=== PATIENT | female | born 1960 | race Caucasian/White ===

== ENCOUNTER 2017-08-30 16:40 | Inpatient (IN) | payer MEDICARE ==
[2017-08-30 18:44] LABS: #Eosinphils 0.3 thou/uL (0.0-0.7); #Lymphocytes 0.8 thou/uL (1.20-3.40); #Monocytes 0.7 thou/uL (0.11-0.59); #Neutrophils 7.2 thou/uL (1.40-6.50); %Basophils 0.2 % (0.0-1.0); %Lymphocytes 8.4 % (21.0-51.0); %Monocytes 7.8 % (0.0-10.0); %Neutrophils 80.7 % (42.0-75.0); Hemoglobin 9.8 g/dL (12.0-16.0); Mean Corpuscular HGB CONC 33.4 g/dL (32.0-36.0); Mean Corpuscular Hemoglobin 32.7 pg (27.0-31.0); Mean Corpuscular Volume 97.7 fl (81.0-99.0); Mean Platelet Volume 6.4 fL (7.4-10.4); Platelet Count 274 thou/uL (130-400); RBC Distribution Width 16.8 % (11.5-14.5); Red Blood Cell (RBC) Count 3.01 mill/uL (4.20-5.40)
--- NOTE | 2017-08-30 18:56 | RAD ---
PORTABLE CHEST: 08/30/17 HISTORY: Edema. COMPARISON: 10/06/10. Heart size is upper normal. Mild vascular engorgement. There is a focal density in the right lower dedra ng which is new from the prior exam and is of uncertain etiology. It has a density suggesting some in ternal calcification. Otherwise, no infiltrate or effusion seen. No evidence of edema. IMPRESSION: No evidence of interstitial or alveolar edema. New focal density in the right lower lung of uncertain significance. It is difficult to evaluate on this portable exam. Recommend a followup PA and lateral view of chest to better evaluate this density. POS: [facility]
[2017-08-30 19:07] LABS: ALT (SGPT) 19 U/L (8-55); AST (SGOT) 26 U/L (5-34); Albumin 3.1 g/dL (3.5-5.0); Alkaline Phosphatase 46 U/L (40-150); Anion Gap 23 mmol/L (10-20); BUN (Urea Nitrogen) 115 mg/dL (9.8-20.1); Bilirubin, Total 0.3 mg/dL (0.2-1.2); Calc. Creatinine Clearance 0 mL/min (70-130); Calcium 9.5 mg/dL (7.8-10.44); Carbon Dioxide 23 mmol/L (22-29); Chloride 90 mmol/L (98-107); Estimated GFR-MDRD 5; Glucose 153 mg/dL (70-105); Lipase 90 U/L (8-78); Potassium 4.6 mmol/L (3.5-5.1); Protein, Total 6.1 g/dL (6.0-8.3); Sodium 131 mmol/L (136-145)
[2017-08-30 19:12] LABS: CKMB 13.2 ng/mL (0-6.6)
[2017-08-30] MEDS ORDERED: hydrALAZINE 20 MG/ML VIAL ONE (19:16)
[2017-08-30] MEDS ORDERED: tiZANidine HCl 4 MG TAB PO PRN (20:23)
[2017-08-30] MEDS ORDERED: Senokot 8.6 MG TAB PO PRN (20:23)
[2017-08-30] MEDS ORDERED: Dextrose 5% in Water 1,000 ML IV PRN (20:23)
[2017-08-30] MEDS ORDERED: Guaifenesin DM 100-10/5 ML UDCUP PO PRN (20:23)
[2017-08-30] MEDS ORDERED: Albuterol Sulfate 2.5 mg/3 ml Neb NEB PRN (20:23)
[2017-08-30] MEDS ORDERED: Acetaminophen 325 MG TAB PO PRN (20:23)
[2017-08-30] MEDS ORDERED: Dextrose 50% Abboject 50 ML SYRINGE SLOW IVP PRN (20:23)
[2017-08-30] MEDS ORDERED: HumaLOG 300 UNITS/3 ML VIAL SC PRN ×2 (20:23)
[2017-08-30] MEDS ORDERED: Acetaminophen 325 MG TAB ONE (20:36)
[2017-08-30] MEDS ORDERED: Ondansetron ODT 4 MG TAB SL PRN (21:19)
[2017-08-30] MEDS ORDERED: Ondansetron HCl/PF 4 MG/2 ML Vial IVP PRN (21:19)
--- NOTE | 2017-08-30 21:25 | HP ---
REASON FOR ADMISSION: Volume overload, severe back pain. HISTORY OF PRESENT ILLNESS: The patient gives history of Dr. Werner asking her to come to the emergency room for hemodialysis. She has gained nearly 40 pounds weight in the last 30 days. The patient has been on peritoneal dialysis from January of last year. Despite that, she has been gaining weight in the last 30 days. She has had severe lower extremity swelling and especially the left started to blister and ooze. Her home health nurse has been wrapping them to reduce the swelling and blistering. The patient also gives history of having low back pain which has been getting worse for the last 4 weeks or so. She had gone to see her chiropractor and had an x-ray done for the lower vertebra. She was told by the chiropractor that she might have disk compression there with radiation of the pain into both her buttocks. She normally is able to stand and help with transfers, as patient is wheelchair bound due to MS. She has not been able to do this and also she has not been able to lay flat due to severe spasms. She was told to get an MRI with sedation by her chiropractor. PAST MEDICAL/SURGICAL HISTORY: 1. Patient has a long list of medical issues including multiple sclerosis which is relapsing remitting from 1993. 2. Celiac disease, lactose intolerance, heart murmur, asthma, kidney stones, cyclical vomiting syndrome, migraines, diabetes mellitus type 2, history of prior foot fracture, arm fracture, has left forearm AV fistula. 3. History of osteomyelitis of talus bone on the right with incision and drainage done, has a permanent darrion in her right foot, cataract surgery, Charcot' s foot in both lower extremities, irritable bowel syndrome, sciatica. 4. End-stage renal disease on peritoneal dialysis, which she started from 2016. 5. Fibromyalgia. 6. Binge eating disorder her entire life. 7. Questionable autism. 8. Has a peritoneal dialysis catheter. CURRENT MEDICATIONS: The patient is on Victoza 1.2 mg p.o. daily, Toujeo daily , nifedipine extended release 90 mg p.o. daily, Toprol-XL 50 mg daily, PhosLo 667 mg 2 tablets three times a day, Singulair 10 mg daily, bumetanide 2 mg daily. She has been getting IV iron twice a month, gabapentin 100 mg 3 times daily, tizanidine 6 mg 3 times daily, Motrin 400 mg 3 times daily, multivitamin 1 tab once daily, vitamin D 2000 units daily, vitamin C 1000 mg daily, stool softener twice daily. ALLERGIES: PENICILLIN, TOLMETIN, BENADRYL, HEPARIN, CLONIDINE, LEVOTHYROXINE, BEE AND WASP STINGS. SOCIAL HISTORY: Does not abuse alcohol or drugs. No history of smoking. She lives alone and has a service dog with her. She has friends who help her out and she also pays someone to help her out 3 times a week with in addition to Home Health. FAMILY HISTORY: Mother is currently 87 years old and is living in Alzheimer's unit. Father of cirrhosis when she was 16 years old and does not know much about him. REVIEW OF SYSTEMS: The following complete review of systems was negative, unless otherwise mentioned in the HPI or below: Constitutional: Weight loss or gain, ability to conduct usual activities. Skin: Rash, itching. Eyes: Double vision, pain. ENT/Mouth: Nose bleeding, neck stiffness, pain, tenderness. Cardiovascular: Palpitations, dyspnea on exertion, orthopnea. Respiratory: Shortness of breath, wheezing, cough, hemoptysis, fever or night sweats. Gastrointestinal: Poor appetite, abdominal pain, heartburn, nausea, vomiting, constipation, or diarrhea. Genitourinary: Urgency, frequency, dysuria, nocturia. Musculoskeletal: Pain, swelling. Neurologic/Psychiatric: Anxiety, depression. Allergy/Immunologic: Skin rash, bleeding tendency. PHYSICAL EXAMINATION: GENERAL: The patient is a 56-year-old female who is currently not in any acute distress. She is sitting in her wheelchair scooter. VITAL SIGNS: Blood pressure 180/84, pulse 90 per minute, respiratory rate 18 per minute, temperature 98.9 degrees Fahrenheit, saturating 98% on room air. NECK: Supple, no elevated JVD. HEENT: Eyes, extraocular muscles intact. Pupils reacting to light. Oral cavity, mucous membranes are moist. No exudates or congestion. CARDIOVASCULAR: S1, S2 heard. Regular rhythm. RESPIRATORY: Air entry 1+ bilaterally. There are rales plus in the infrascapular area. Breath sounds are distant. ABDOMEN: Soft, bowel sounds heard. No tenderness, rigidity or guarding. The patient has a PD catheter. EXTREMITIES: Left upper extremity has a good thrill over her fistula in the forearm. There is 2+ peripheral edema with blistering in the left medial thigh area. VASCULAR SYSTEM: Peripheral pulses 1+ bilateral, no ischemic ulcerations or gangrene. CENTRAL NERVOUS SYSTEM: No gross focal deficits seen. Patient is alert, awake , oriented well. PSYCHIATRIC: The patient's mood is euthymic. No hallucinations or delusions. LABORATORY AND X-RAY FINDINGS: Chest x-ray done shows no obvious infiltrate. BNP is 434, albumin is 3.1, lipase is 90, BUN 115, creatinine 8.29, glucose is 153, albumin is 3.1. Potassium is 4.6, serum bicarbonate 23. White count of 9 , H&H 10 and 29, platelet count 274 with 80% neutrophils, MCV is 97. EKG done shows sinus rhythm at 80 beats per minute, no gross ST-T wave changes. CLINICAL IMPRESSION AND PLAN: The patient will be admitted to medical floor for volume overload with inadequate dialysis through the peritoneal dialysis. Dr. Werner is arranging for hemodialysis to be done tonight and likely will need another 3 or 4 sessions until she becomes euvolemic. The plan is to get hemodialysis during her stay here and switch her back to peritoneal dialysis once she is euvolemic per Dr. Werner. We will involve Wound Care as well for lower extremity edema with blistering. We will continue all her home medications including Toprol-XL, Singulair, Procardia-XL, tizanidine, PhosLo as before. The patient is wanting an MRI with sedation as she cannot lay flat. This will be done after she has at least 2 or 3 dialysis sessions so that she can be able to lay flat. Patient is having extreme issues with mobilizing herself and not being able to help with at least transfers to her wheelchair. In view of this, we will obtain both lumbar and thoracic spine MRIs. She has had plain x-rays done which have not shown any obvious fractures per patient via her chiropractor. Please note patient has a fistula with good thrill on the left forearm. CODE STATUS: FULL. We will continue to closely monitor her on medical floor. [facility]PITALArnie
[2017-08-30] MEDS: Morphine 2 MG/ML SYRINGE SLOW IVP PRN (21:35)
[2017-08-30] MEDS: Montelukast Sodium 10 mg Tablet PO SCH (21:40)
[2017-08-30] MEDS: Docusate 100 MG CAP PO SCH (21:40)
[2017-08-30] MEDS: Famotidine 20 MG TAB PO SCH (21:40)
[2017-08-31 00:37] LABS: Hep B Surf Ag Non-Reactive S/CO (NonReactive)
[2017-08-31] MEDS: traMADol HCl 50 MG TAB PO PRN ×4 (01:00→22:58)
[2017-08-31] MEDS: tiZANidine HCl 4 MG TAB PO PRN ×4 (01:00→22:58)
[2017-08-31 02:21] VITALS: BMI 45.6
[2017-08-31 02:27] LABS: HBSAB Concentration 0.75 mIU/mL; Hep B Surf AB Non-Reactive (NonReactive)
[2017-08-31 05:23] LABS: #Eosinphils 0.2 thou/uL (0.0-0.7); #Lymphocytes 0.9 thou/uL (1.20-3.40); #Monocytes 0.7 thou/uL (0.11-0.59); #Neutrophils 6.7 thou/uL (1.40-6.50); %Basophils 0.5 % (0.0-1.0); %Eosinophils 2.1 % (0.0-10.0); %Lymphocytes 10.2 % (21.0-51.0); %Monocytes 8.5 % (0.0-10.0); %Neutrophils 78.8 % (42.0-75.0); Hemoglobin 9.8 g/dL (12.0-16.0); Mean Corpuscular HGB CONC 33.1 g/dL (32.0-36.0); Mean Corpuscular Hemoglobin 32.6 pg (27.0-31.0); Mean Corpuscular Volume 98.5 fl (81.0-99.0); Mean Platelet Volume 6.4 fL (7.4-10.4); Platelet Count 238 thou/uL (130-400); Red Blood Cell (RBC) Count 2.99 mill/uL (4.20-5.40); White Blood Cell (WBC) Count 8.5 thou/uL (4.8-10.8)
[2017-08-31 05:48] LABS: Albumin 2.9 g/dL (3.5-5.0); Anion Gap 25 mmol/L (10-20); BUN (Urea Nitrogen) 104 mg/dL (9.8-20.1); BUN/Creatinine Ratio 13.35; Calc. Creatinine Clearance 17 mL/min (70-130); Calcium 9.2 mg/dL (7.8-10.44); Carbon Dioxide 17 mmol/L (22-29); Chloride 92 mmol/L (98-107); Estimated GFR-MDRD 5; Glucose 116 mg/dL (70-105); Potassium 4.9 mmol/L (3.5-5.1); Sodium 129 mmol/L (136-145)
[2017-08-31 05:52] LABS: Phosphorus 9.7 mg/dL (2.3-4.7)
--- NOTE | 2017-08-31 08:35 | PDOC.PN ---
- Subjective Encounter Start Date: 08/31/17 Encounter Start Time: 08:33 Subjective: no complaints, cheerfull - Objective MAR Reviewed: Yes Vital Signs & Weight: Vital Signs (12 hours) Temp Pulse Resp BP Pulse Ox 08/31/17 04:00 97.6 F 77 18 159/67 H 98 08/30/17 21:00 97.6 F 84 18 151/69 H 99 Result Diagrams: 08/31/17 04:45 08/31/17 04:45 Additional Labs: Accuchecks 08/31/17 05:06 POC Glucose 119 H Phys Exam - Physical Examination Neck: no JVD Respiratory: clear to auscultation bilateral Cardiovascular: RRR, no significant murmur Gastrointestinal: soft, non-tender, positive bowel sounds Musculoskeletal: edema present Dx/Plan (1) Volume overload Code(s): E87.70 - FLUID OVERLOAD, UNSPECIFIED Status: Acute (2) ESRD (end stage renal disease) Code(s): N18.6 - END STAGE RENAL DISEASE Status: Chronic (3) DM type 2 causing ESRD Code(s): E11.22 - TYPE 2 DIABETES MELLITUS W DIABETIC CHRONIC KIDNEY DISEASE; N18.6 - END STAGE RENAL DISEASE Status: Chronic (4) Multiple sclerosis Code(s): G35 - MULTIPLE SCLEROSIS Status: Acute (5) Back pain Code(s): M54.9 - DORSALGIA, UNSPECIFIED Status: Acute Qualifiers: Back pain location: back pain in unspecified location Chronicity: unspecified Back pain laterality: unspecified Qualified Code(s): M54.9 - Dorsalgia, unspecified (6) HTN (hypertension) Code(s): I10 - ESSENTIAL (PRIMARY) HYPERTENSION Status: Acute - Plan HD per renal -: wound care -: accu/ss/ long acting insulin -: cont metoprolol * .
[2017-08-31] MEDS ORDERED: Non-Formulary Item 1 EACH (Guaifenesin [Mucinex] 1,200 MG) PO PRN (08:43)
[2017-08-31] MEDS ORDERED: Polyethylene Glycol 3350 17 GM Packet PO PRN (08:43)
[2017-08-31] MEDS ORDERED: Magnesium Citrate 300 ML BOT PO PRN (08:43)
[2017-08-31] MEDS ORDERED: ALPHA LIPOIC ACID 600 MG PO SCH (09:00)
[2017-08-31] MEDS ORDERED: IBUPROFEN 400 MG PO SCH (09:00)
[2017-08-31] MEDS ORDERED: Non-Formulary Item 1 EACH (Multivitamin [Multi-Vitamin Daily] 1 TAB) PO SCH (09:00)
[2017-08-31] MEDS ORDERED: Non-Formulary Item 1 EACH (Ascorbic Acid [Vitamin C] 1,000 MG) PO SCH (09:00)
[2017-08-31] MEDS ORDERED: INSULIN GLARGINE HUM REC ANLOG 60 UNIT SQ SCH (09:00)
[2017-08-31] MEDS ORDERED: Non-Formulary Item 1 EACH (Cholecalciferol (Vitamin D3) [Vitamin D3] 2,000 UNIT) PO SCH (09:00)
[2017-08-31] MEDS: Docusate 100 MG CAP PO SCH ×2 (09:11→20:49)
[2017-08-31] MEDS: Calcitriol 0.25 MCG CAP PO SCH (09:11)
[2017-08-31] MEDS: Calcium Acetate 667 MG CAP PO SCH ×3 (09:11→16:42)
[2017-08-31] MEDS ORDERED: guaiFENesin ER 600 MG TAB PO PRN (09:11)
[2017-08-31] MEDS: Liraglutide [Victoza 2-Pak] 1.2 MG SC SCH ×2 (09:44→14:56)
[2017-08-31] MEDS: Insulin Detemir 100 UNITS/ML 60 UNITS in Pre-Filled Syringe 1 EACH SC SCH ×2 (10:44→14:57)
[2017-08-31] MEDS: Gabapentin 300 MG CAP PO SCH ×3 (12:36→20:47)
[2017-08-31] MEDS: NIFEdipine XL 90 MG TAB PO SCH (12:36)
[2017-08-31] MEDS: Multivit, Therapeutic 1 TAB PO SCH (12:37)
[2017-08-31] MEDS: Ascorbic Acid 500 mg Chewable Tablet PO SCH (12:37)
[2017-08-31] MEDS: Ibuprofen 200 MG TAB PO SCH ×2 (14:59→20:47)
--- NOTE | 2017-08-31 17:45 | CON ---
DATE OF CONSULTATION: 08/31/2017 CONSULTING PHYSICIAN: Alphonso Escalona M.D. REQUESTING PHYSICIAN: ER physician. REASON FOR CONSULTATION: Renal replacement therapy in a patient with end-stage renal disease. IMPRESSION: 1. End-stage renal disease, peritoneal dialysis dependent. 2. Hypervolemia with approximately about 22 pounds of extra fluid, not amenable to peritoneal dialys is treatment. 3. Morbid obesity. PLAN: 1. Patient to undergo hemodialysis with ultrafiltration in order to address the severe hypervolemia and subsequently patient to be transitioned back to peritoneal dialysis. 2. Further management to be dependent on the clinical course. HISTORY OF PRESENT ILLNESS: A 56-year-old female patient with multiple medical problems including mu ltiple sclerosis, low back pain in the context of possible disk disease, fibromyalgia, end-stage neisha l disease, who presented here having accumulated several pounds of fluid weight with some difficulty and carrying on with activity or daily living. As a result of this, patient did change peritoneal di alysis use a more concentrated solution without much of any success. Decision has not been lb en to admit this patient to undergo hemodialysis with ultrafiltration as tolerated by blu tello the renal consultation. PAST MEDICAL HISTORY: As documented above. In addition, the patient does have history of osteomyeli tis, binge eating, and possible . MEDICATIONS: Reviewed and as documented on [employer]. ALLERGIES: PENICILLIN, , BENADRYL, HEPARIN, CLONIDINE. SOCIAL HISTORY: Denies alcohol, tobacco or illicit drug use. Lives alone. FAMILY HISTORY: Not significantly related to presenting illness. REVIEW OF SYSTEMS: As documented in the body of the history. All the other systems reviewed were fo und not to be significantly related to the presenting illness. PHYSICAL EXAMINATION: VITAL SIGNS: Afebrile with temperature 97.6, pulse 84, respirations of 18, O2 sat 99% with blood pre ssure 151/69. HEENT: Unremarkable. Moist oral mucosa. NECK: Supple, no conjunctival injection or icterus. CARDIOVASCULAR SYSTEM: First and second heart sounds were heard. RESPIRATORY SYSTEM: Clear to auscultation. DIGESTIVE SYSTEM: Revealed an obese abdomen. EXTREMITIES: Showed peripheral edema. NEUROLOGIC: Alert, oriented. No lateralizing signs. LYMPHATICS: No peripheral lymphadenopathy. SUMMARY: A 56-year-old female patient with end-stage renal disease, who presented here with several liters of fluid weight gain. Thank you for this consultation. We will follow with you.
[2017-08-31] MEDS: Morphine 2 MG/ML SYRINGE SLOW IVP PRN (17:46)
[2017-08-31] MEDS: Montelukast Sodium 10 mg Tablet PO SCH (20:47)
[2017-08-31] MEDS: Famotidine 20 MG TAB PO SCH (20:47)
[2017-09-01] MEDS: traMADol HCl 50 MG TAB PO PRN ×2 (04:20→13:10)
[2017-09-01] MEDS ORDERED: Ondansetron HCl/PF 4 MG/2 ML Vial ONE (07:35)
[2017-09-01] MEDS ORDERED: Midazolam HCl 2 mg/2 ml Vial ONE (07:47)
[2017-09-01] MEDS ORDERED: Fentanyl 250 MCG/5 ML VIAL ONE (07:47)
[2017-09-01] MEDS: Calcitriol 0.25 MCG CAP PO SCH (09:02)
[2017-09-01] MEDS: Multivit, Therapeutic 1 TAB PO SCH (09:03)
[2017-09-01] MEDS: Gabapentin 300 MG CAP PO SCH ×2 (09:03→14:59)
[2017-09-01] MEDS: Calcium Acetate 667 MG CAP PO SCH ×2 (09:03→11:30)
[2017-09-01] MEDS: Ibuprofen 200 MG TAB PO SCH ×2 (09:04→15:00)
[2017-09-01] MEDS: Ascorbic Acid 500 mg Chewable Tablet PO SCH (09:05)
[2017-09-01] MEDS: Docusate 100 MG CAP PO SCH (09:06)
[2017-09-01] MEDS: NIFEdipine XL 90 MG TAB PO SCH (09:07)
[2017-09-01] MEDS: Liraglutide [Victoza 2-Pak] 1.2 MG SC SCH (09:08)
[2017-09-01] MEDS: Insulin Detemir 100 UNITS/ML 60 UNITS in Pre-Filled Syringe 1 EACH SC SCH (09:10)
[2017-09-01 09:11] VITALS: BP 151/79; TEMP 98
[2017-09-01] MEDS: tiZANidine HCl 4 MG TAB PO PRN (09:21)
--- NOTE | 2017-09-01 11:40 | PDOC.PN ---
- Subjective Encounter Start Date: 09/01/17 Encounter Start Time: 11:39 Subjective: cant do MRI due to weight - Objective MAR Reviewed: Yes Vital Signs & Weight: Vital Signs (12 hours) Temp Pulse Resp BP BP Pulse Ox 09/01/17 09:07 72 151/79 H 09/01/17 08:00 98.0 F 72 22 H 151/79 H 90 L 09/01/17 04:00 98 F 72 18 143/79 H 96 09/01/17 00:00 98 F 75 20 177/62 H 95 Weight Admit Weight 300 lb Weight 300 lb I&O: 08/31/17 09/01/17 09/02/17 06:59 06:59 06:59 Intake Total 450 Balance 450 Result Diagrams: 08/31/17 04:45 08/31/17 04:45 Additional Labs: Accuchecks 09/01/17 08/31/17 08/31/17 05:12 20:10 17:16 POC Glucose 107 166 H 233 H 08/31/17 12:49 POC Glucose 127 H Phys Exam - Physical Examination Neck: no JVD Respiratory: clear to auscultation bilateral Cardiovascular: RRR, no significant murmur Gastrointestinal: soft, non-tender, positive bowel sounds Musculoskeletal: edema present Dx/Plan (1) Volume overload Code(s): E87.70 - FLUID OVERLOAD, UNSPECIFIED Status: Acute (2) ESRD (end stage renal disease) Code(s): N18.6 - END STAGE RENAL DISEASE Status: Chronic (3) DM type 2 causing ESRD Code(s): E11.22 - TYPE 2 DIABETES MELLITUS W DIABETIC CHRONIC KIDNEY DISEASE; N18.6 - END STAGE RENAL DISEASE Status: Chronic (4) Multiple sclerosis Code(s): G35 - MULTIPLE SCLEROSIS Status: Acute (5) Back pain Code(s): M54.9 - DORSALGIA, UNSPECIFIED Status: Acute Qualifiers: Back pain location: back pain in unspecified location Chronicity: unspecified Back pain laterality: unspecified Qualified Code(s): M54.9 - Dorsalgia, unspecified (6) HTN (hypertension) Code(s): I10 - ESSENTIAL (PRIMARY) HYPERTENSION Status: Acute - Plan cont PD , discuss with renal * .
--- NOTE | 2017-09-01 14:06 | DIS ---
TRANSFER OF CARE NOTE PRIMARY CARE PROVIDER: Dr. Harshil Duff SUPERINTENDENT DRILLING AND PRODUCTION: Dr. Alphonso Escalona DATE OF ADMISSION: 08/30/2017 DATE OF DISCHARGE: 09/01/2017 DISCHARGE DIAGNOSES: 1. End-stage renal disease. 2. Edema. 3. Hypertension. 4. Back pain. 5. Multiple sclerosis. 6. Diabetes mellitus type 2. 7. Hazy density in the right lower lung field. DISCHARGE MEDICATIONS: Tizanidine 4 mg p.o. b.i.d. p.r.n., Zofran oral dissolving tablet 8 mg p.o. t .i.d. p.r.n., ibuprofen 400 mg p.o. t.i.d. p.r.n., Bumex 2 mg daily, gabapentin 300 mg p.o. t.i.d., V ictoza 2 pack 1.2 mg subcu daily, insulin Glargine 60 units subcu daily, Nifedipine 90 mg daily. ALLERGIES: DIPHENHYDRAMINE, LEVOTHYROXINE, TOLECTIN, CLONIDINE, FLUTICASONE, HEPARIN, METOPROLOL, PE NICILLIN, PNEUMOCOCCAL VACCINE, FLU VACCINE. CODE STATUS: Full. PENDING AT THE TIME OF DISCHARGE: Nothing. HOSPITAL COURSE: The patient referred to the [facility] by Dr. Alphonso velasquez. Reportedly, she has gained 40 pounds of weight in 30 days. She is on peritoneal dialysis at [facility]. She has had lower extremity swelling. Her chest x-ray demonstrated a hazy density in the right lower lung field of uncertain significance. A PA and lateral was recommended. She is unable to zeinab d for same. LABORATORY: Sodium 131, potassium 4.6, creatinine 8.29, BUN 115, CO2 23. CBC: White count 9, hemog lobin 9.8, platelet count 274,000. Her cardiorespiratory exam is normal. She has no indication for emergent hemodialysis. Her fistulas were both clotted. I have discussed the case with Dr. Werner and he suggests discharging. She needs follow up with her PCP in 7 days, if possible she needs a PA and lateral chest x-ray in follow up. An attempt was made to do an MRI which has been recommended by her chiropractor. She has 50 pounds o lanny the weight limit to do an MRI anywhere locally. CONSULTATIONS: Dr. Alphonso Escalona PROCEDURES: None. FOLLOWUP: Follow up with PCP in 7 days. Continue home dialysis. Follow up PA and lateral chest x-r ay when able.
--- NOTE | 2017-09-01 18:10 | PRG ---
DATE OF SERVICE: 09/01/2017 SUBJECTIVE: The patient was seen and examined, unable to get the MRI of the back and unable to lay d own for hemodialysis cath placement. The patient did undergo peritoneal dialysis with 4.25% with inc reased ultrafiltration. However, the patient still has evidence of hypervolemia. PHYSICAL EXAMINATION: In any case, the patient noted with following vital signs. VITAL SIGNS: Afebrile with temperature 98, pulse 72, respiratory rate 22, O2 sat of 96% on room air with a blood pressure 151/79. HEENT: Unremarkable with moist oral mucosa. NECK: Supple, no conjunctival injection or icterus. CARDIOVASCULAR: First and second heart sounds were heard. RESPIRATORY: Clear to auscultation. DIGESTIVE: Revealed an obese abdomen. EXTREMITIES: Showed peripheral edema up to the thigh. NEUROLOGIC: Alert, oriented. No lateralizing signs. LYMPHATICS: No peripheral lymphadenopathy. IMPRESSION: 1. End-stage renal disease on peritoneal dialysis with evidence of problem #2. 2. Hypervolemia. 3. Severe low back pain. 4. Morbid obesity. PLAN: 1. The patient has been instructed to be on 4.25% peritoneal dialysate. 2. Also, I have instructed this patient to start Bumex 2 mg b.i.d. and my plan is to follow up with this patient tomorrow in the clinic. 2. Further management to be dependent on the clinical course.
--- NOTE | 2017-09-03 14:23 | EKG ---
Test Reason : DIAGNOSING PURPOSES Blood Pressure : / mmHG Vent. Rate : 080 BPM Atrial Rate : 080 BPM P-R Int : 114 ms QRS Dur : 088 ms QT Int : 390 ms P-R-T Axes : -07 000 048 degrees QTc Int : 449 ms Sinus rhythm with occasional Premature ventricular complexes Otherwise normal ECG Confirmed by MIRZA Desai, CR ([id number]), editorial intern QUE POLK ([id number]) on 09/03/2017 2:21:54 PM Referred By: Confirmed By:CR BLUE M.D.
== END 2017-09-01 16:57 | disposition home or self-care (01) | DRG 640 ==
LOC: ERS 16:43 → T4-B 20:47
PROVIDERS: ADMIT Internal Medicine; ATTEND Internal Medicine
PROC: 5A1D70Z Performance of Urinary Filtration, Intermittent, Less than 6 Hours Per Day (ICD-10-PCS; principal; 2017-08-30)
PROC: 3E1M39Z Irrigation of Peritoneal Cavity using Dialysate, Percutaneous Approach (ICD-10-PCS; 2017-08-31)
DX: E87.70 Fluid overload, unspecified (principal); N18.6 End stage renal disease; E11.22 Type 2 diabetes mellitus with diabetic chronic kidney disease; I12.0 Hypertensive chronic kidney disease with stage 5 chronic kidney disease or end stage renal disease; Z68.42 Body mass index [BMI] 45.0-49.9, adult; Z99.2 Dependence on renal dialysis; G35 Multiple sclerosis; K90.0 Celiac disease; J45.909 Unspecified asthma, uncomplicated; M79.7 Fibromyalgia; F50.81 Binge eating disorder; E66.01 Morbid (severe) obesity due to excess calories; M54.5 Low back pain; J98.4 Other disorders of lung; Z88.0 Allergy status to penicillin; Z88.8 Allergy status to other drugs, medicaments and biological substances; Z88.7 Allergy status to serum and vaccine; Z91.030 Bee allergy status; Z91.038 Other insect allergy status; Z79.84 Long term (current) use of oral hypoglycemic drugs; Z79.899 Other long term (current) drug therapy
CPT/HCPCS: 36415; 36416; 71045; 72148; 80053; 80069; 82553; 83690; 83880; 84484; 85025; 86706; 87340; 90935; 90945; 93005; 96374; A4216; G0257; J0360; J1815; J2250; J2270; J2405; J3010